=== PATIENT | male | born 1960 | race Caucasian/White ===

== ENCOUNTER 2021-09-13 16:45 | Emergency (ER) | payer OTHER ==
[2021-09-13 17:07] VITALS: BMI 34.2
[2021-09-13] MEDS ORDERED: REMDESIVIR 200 MG in SODIUM CHLORIDE 250 ML IVPB ONE (17:28)
[2021-09-13] MEDS ORDERED: SOTROVIMAB 500 MG in SODIUM CHLORIDE 100 ML IVPB ONE (17:31)
[2021-09-13 19:06] VITALS: TEMP 99.8
[2021-09-13 22:24] VITALS: BP 138/66; PULSE 74
== END 2021-09-13 22:26 ==
LOC: JER 16:45
DX: U07.1 COVID-19 (principal)
CPT/HCPCS: 99284-25; M0247; Q0247

== ENCOUNTER 2021-09-14 00:24 | Observation (INO) | payer OTHER ==
[2021-09-14 03:14] LABS: BASO % 0.3 % (0-2.0); EOS % 0.3 % (0-4.5); HEMATOCRIT 42.3 % (35.4-49); LYMPH % 8.3 % (8-40); MCHC 35.5 g/dl (32.0-35.9); MEAN CELL VOLUME 112.9 fl (80-96); MEAN PLT VOLUME 8.9 fl (7.5-11.1); MONO % 13.3 % (3.8-10.2); NEUT % 77.8 % (42.8-82.8); PLATELET COUNT 160 10^3/uL (134-434); RBC 3.75 M/mm3 (4.00-5.60); RDW 14.4 % (11.9-15.9); WHITE BLOOD COUNT 4.1 K/mm3 (4.0-10.0)
[2021-09-14 03:21] LABS: MCH 40.1 pg (25.7-33.7)
[2021-09-14] MEDS ORDERED: MELATONIN 1 MG TABLET PO ONE (03:33)
[2021-09-14] MEDS ORDERED: ACETAMINOPHEN 325 MG TABLET (FP) PO PRN (03:33)
[2021-09-14 03:49] LABS: CHLORIDE 103 mmol/L (98-107); SODIUM 132 mmol/L (136-145)
[2021-09-14 03:51] LABS: ALBUMIN 3.7 g/dl (3.4-5.0); CALCIUM 8.7 mg/dL (8.5-10.1); CO2 31 mmol/L (21-32); GLUCOSE,RANDOM 73 mg/dL (74-106)
[2021-09-14 03:52] LABS: BLOOD UREA NITROGEN 14.1 mg/dL (7-18)
[2021-09-14 03:54] LABS: CREATININE 1.1 mg/dL (0.55-1.3)
[2021-09-14 03:57] LABS: ALK PHOS 84 U/L (45-117)
[2021-09-14] MEDS ORDERED: ARTIFICIAL TEARS (POLYVINYL ALCOHOL) OPTH DROPS OU PRN (04:21)
[2021-09-14 04:51] LABS: ANISOCYTOSIS 2+; MACROCYTOSIS 2+; PLATELET ESTIMATE NORMAL
[2021-09-14 05:18] LABS: ANION GAP -1 MMOL/L (8-16); SGOT/AST 108 U/L (15-37); SGPT/ALT 32 U/L (13-61)
[2021-09-14 05:41] LABS: BILIRUBIN,TOTAL < 0.2 mg/dL (0.2-1)
[2021-09-14 06:23] LABS: CHLORIDE 105 mmol/L (98-107); SODIUM 141 mmol/L (136-145)
[2021-09-14 06:24] LABS: CALCIUM 8.6 mg/dL (8.5-10.1)
[2021-09-14 06:25] LABS: ANION GAP 7 MMOL/L (8-16); BLOOD UREA NITROGEN 13.5 mg/dL (7-18); CO2 29 mmol/L (21-32); GLUCOSE,RANDOM 77 mg/dL (74-106)
[2021-09-14] MEDS: LEVOTHYROXINE NA 100 MCG TABLET (FP) PO SCH (07:55)
[2021-09-14] MEDS ORDERED: ASCORBIC ACID 500 MG TABLET (FP) ONE (08:15)
[2021-09-14] MEDS ORDERED: ASPIRIN 81 MG CHEWABLE TABLETS ONE (08:15)
[2021-09-14] MEDS ORDERED: FUROSEMIDE 40 MG TABLET (FP) ONE (08:16)
[2021-09-14] MEDS ORDERED: LISINOPRIL 5 MG TABLET ONE (08:16)
[2021-09-14] MEDS ORDERED: LEVOTHYROXINE NA 25 MCG TABLET (FP) ONE (08:16)
[2021-09-14] MEDS ORDERED: ENOXAPARIN NA (PORCINE) 40 MG/0.4 ML DISP.SYRIN SQ ONE (08:17)
[2021-09-14] MEDS: ASPIRIN 81 MG CHEWABLE TABLETS PO SCH (09:13)
[2021-09-14] MEDS: LISINOPRIL 10 MG TABLET PO SCH (09:14)
[2021-09-14] MEDS: ENOXAPARIN NA (PORCINE) 40 MG/0.4 ML DISP.SYRIN SQ SCH (09:14)
[2021-09-14] MEDS: ASCORBIC ACID 500 MG TABLET (FP) PO SCH (09:14)
[2021-09-14] MEDS ORDERED: PATIENT'S OWN MEDICATION (NON-FORMULARY) (Dorzolamide/Timolol/Pf [Cosopt Pf Eye Drops] 1 E OP SCH (10:00)
[2021-09-14] MEDS: TIMOLOL 0.5% OPHTHALMIC SOL 5 ML BOTTLE OU SCH ×2 (10:50→23:37)
[2021-09-14] MEDS: METOPROLOL TARTRATE 25 MG TABLET (FP) PO SCH ×2 (10:54→23:35)
[2021-09-14] MEDS: DORZOLAMIDE 2% HCL OPHTHALMIC SOLUTION 10 ML BOTTLE OU SCH ×2 (10:54→23:37)
[2021-09-14] MEDS: FUROSEMIDE 40 MG TABLET (FP) PO SCH (10:54)
[2021-09-14] MEDS ORDERED: CYANOCOBALAMIN (VITAMIN B-12) 1000 MCG/1 ML VIAL IM SCH (15:00)
[2021-09-14] MEDS ORDERED: LATANOPROST 0.005% OPHTH SOLN 2.5ML BOTTLE OU SCH (22:00)
[2021-09-15 01:47] VITALS: BMI 33.5
[2021-09-15] MEDS: LEVOTHYROXINE NA 100 MCG TABLET (FP) PO SCH (06:58)
[2021-09-15] MEDS: METOPROLOL TARTRATE 25 MG TABLET (FP) PO SCH (09:50)
[2021-09-15] MEDS: ENOXAPARIN NA (PORCINE) 40 MG/0.4 ML DISP.SYRIN SQ SCH (09:50)
[2021-09-15] MEDS: ASPIRIN 81 MG CHEWABLE TABLETS PO SCH (09:52)
[2021-09-15] MEDS: LISINOPRIL 10 MG TABLET PO SCH (09:53)
[2021-09-15] MEDS: FUROSEMIDE 40 MG TABLET (FP) PO SCH (09:53)
[2021-09-15] MEDS: ASCORBIC ACID 500 MG TABLET (FP) PO SCH (09:53)
[2021-09-15] MEDS: DORZOLAMIDE 2% HCL OPHTHALMIC SOLUTION 10 ML BOTTLE OU SCH (09:54)
[2021-09-15] MEDS: TIMOLOL 0.5% OPHTHALMIC SOL 5 ML BOTTLE OU SCH (09:54)
[2021-09-15] MEDS ORDERED: CYANOCOBALAMIN (VITAMIN B-12) 1000 MCG/1 ML VIAL IM SCH (10:00)
[2021-09-15 18:20] VITALS: BP 146/81; PULSE 60; TEMP 98.1
[2021-09-16] MEDS ORDERED: ERGOCALCIFEROL (VIT D2) 50,000 UNIT (1.25 MG) CAPSULE PO SCH (10:00)
== END 2021-09-15 18:50 ==
LOC: JER 00:24 → UNDOADMOB 01:46 → JERBED 01:46 → INTOOBSV 03:30 → OBSVTOIN 03:30 → JERBED 09:21 → J5S 20:50
PROVIDERS: ADMIT Hospitalist; ATTEND Internal Medicine
PROC: 3E023GC Introduction of Other Therapeutic Substance into Muscle, Percutaneous Approach (ICD-10-PCS; principal; 2021-09-14)
DX: U07.1 COVID-19 (principal); E05.00 Thyrotoxicosis with diffuse goiter without thyrotoxic crisis or storm; E66.9 Obesity, unspecified; Z68.33 Body mass index [BMI] 33.0-33.9, adult; I10 Essential (primary) hypertension; K59.00 Constipation, unspecified; E03.9 Hypothyroidism, unspecified; F17.210 Nicotine dependence, cigarettes, uncomplicated; Z29.9 Encounter for prophylactic measures, unspecified
CPT/HCPCS: 36415; 80048; 80053; 82607; 82746; 85025; 86340; 93005; 93010; 96372; 97116-GP; 97161-GP; 99285-25; C9803; G0378; U0003; U0005